=== PATIENT | female | born 1960 | race African-American/Black ===

== ENCOUNTER 2024-01-27 08:16 | Day surgery (SDC) | payer OTHER ==
[2024-01-21 15:50] VITALS: BMI 43.5
[2024-01-27 09:38] VITALS: BP 129/68; PULSE 82; RESP 18; TEMP 98
== END 2024-01-27 10:08 | disposition home or self-care (01) ==
LOC: FASU-ENDO 08:16
PROVIDERS: ATTEND Internal Medicine Gastroenterology
PROC: 0DBL8ZX Excision of Transverse Colon, Via Natural or Artificial Opening Endoscopic, Diagnostic (ICD-10-PCS; principal; 2024-01-27 08:55)
DX: Z12.11 Encounter for screening for malignant neoplasm of colon (principal); D12.3 Benign neoplasm of transverse colon
CPT/HCPCS: 82962